=== PATIENT | female | born 1995 | race Caucasian/White ===

== ENCOUNTER 2018-06-06 11:11 | Inpatient (IN) ==
[2018-06-06 12:28] LABS: BASO# 0.05 X1000 (0.0-0.2); BASO% 0.6 % (0.0-0.8); HEMATOCRIT 39.3 % (37.0-47.0); HEMOGLOBIN 13.4 g/dL (12.0-16.0); IMM GRAN# 0.02 X1000 (0.0-0.04); IMM GRAN% 0.2 % (0.0-0.5); LYMPH% 10.7 % (20.5-51.1); MCH 29.3 PG (27-31); MCHC 34.1 g/dL (33-37); MCV 85.8 FL (81-99); MONO# 0.54 X1000 (0.11-0.59); MONO% 6.4 % (1.7-9.3); MPV 8.1 FL (7.4-10.4); NEUT# 6.94 X1000 (1.4-6.5); NEUT% 82.1 % (42.2-75.2); PLT 238 X1000 (130-400); RBC 4.58 XMIL (4.2-5.4); WBC 8.45 X1000 (4.8-10.8)
[2018-06-06 12:45] LABS: BILIRUBIN URINE NEGATIVE (NEGATIVE); BLOOD URINE 4+ (NEGATIVE); CLARITY CLEAR (CLEAR); COLOR YELLOW; GLUCOSE URINE NEGATIVE (NEGATIVE); KETONE URINE 3+(Large) mg/dL (NEGATIVE); LEUKOCYTES URINE 1+ (NEGATIVE); NITRITE URINE NEGATIVE (NEGATIVE); PH URINE 6.5; PROTEIN URINE 1+(30 mg/dL) mg/dL (NEGATIVE); UROBILINOGEN URINE 4 mg/dL
[2018-06-06 12:46] LABS: URINE BACTERIA 2+ /HFP; URINE EPITHELIAL CELLS >10 /HPF (<10); URINE RBC 20-40 /HPF (<10); URINE SOURCE CLEAN CATCH
[2018-06-06 12:51] LABS: AGAP 22; ALBUMIN 4.3 g/dL (3.5-5.0); ALKALINE PHOSPHATASE 154 U/L (32-104); BUN 9 mg/dL (8-22); CALCIUM 9.4 mg/dL (8.8-10.2); CHLORIDE 98 mmol/L (98-107); COSMO 274; CREATININE 0.7 mg/dL (0.5-0.9); ESTIMATED GFR > 60; GLUCOSE 93 mg/dL (70-104); GOT 116 U/L (10-30); GPT 155 U/L (10-36); LIPASE 18 U/L (13-60); POTASSIUM 3.7 mmol/L (3.5-5.1); SODIUM 138 mmol/L (136-145); TCO2 18 mmol/L (25-35); TOTAL PROTEIN 8.1 g/dL (6.3-8.3)
[2018-06-06] MEDS ORDERED: NS 1,000 ML IV ONE ×2 (15:08→15:09)
[2018-06-06] MEDS ORDERED: ZOFRAN IV ONE (15:08)
[2018-06-06] MEDS ORDERED: THIAMINE 100 MG in NS 50 ML IV ONE (15:08)
[2018-06-06] MEDS ORDERED: ATIVAN IV ONE (15:09)
[2018-06-06] MEDS ORDERED: D50W SYRINGE IV ONE (16:55)
--- NOTE | 2018-06-06 17:00 | PROVIDER DOCUMENTATION ---
This chart was entered by Jeanna Barone Scribe, acting as scribe for Carlos Jennings PA. [id number] Abuse/Overdose - General Chief Complaint: General Adult Stated Complaint: POSS. ALCOHOL POSION. Time Seen by Provider: 06/06/18 14:52 Source: patient Allergies/Adverse Reactions: Allergies Allergy/AdvReac Type Severity Reaction Status Date / Time No Known Allergies Allergy Verified 06/06/18 11:26 Home Medications: Home Medication List Medication Instructions Recorded Confirmed Last Taken Type NK [No Home Medications] 06/06/18 06/06/18 Unknown History - History of Present Illness-Drug/Alcohol Nature of Presenting Problem: Patient is a 22 year old female who presents to the ED with nausea, vomiting and loss of appetite. Patient states she drank large amounts of alcohol this weekend. Patient states history of depression. Patient also states history of alcoholic ketoacidosis. Patient states she was admitted at [facility] last month for alcoholic ketoacidosis. This episode of drinking or use began:: this morning Severity: reports: moderate Situational problems related to:: reports: N/A Psychiatric Complaints: reports: depressed Associated Symptoms: reports: loss of appetite, nausea, vomiting Any injuries associated with this episode of intoxication?: No Similar Symptoms Previously?: Yes Recently seen or treated by another doctor?: Yes - Substance Abuse Substance Use: reports: alcohol - Alcohol Abuse Last Drink?: 22:00 Type and amount of last drink?: vodka Usually drinks:: binge Other alcohols?: reports: N/A Review of Systems - Adult - REVIEW OF SYSTEMS - ADULT Constitutional: reports: no symptoms reported Eyes: reports: no symptoms reported Ears, Nose, Mouth & Throat: reports: no symptoms reported Cardiovascular: reports: no symptoms reported Respiratory: reports: no symptoms reported Gastrointestinal: reports: nausea, poor appetite, vomiting. denies: abdominal pain, diarrhea Genitourinary: reports: no symptoms reported Musculoskeletal: reports: no symptoms reported Integumentary: reports: no symptoms reported Neurological: reports: no symptoms reported Psychiatric: reports: depression. denies: anxiety, suicidal thoughts Endocrine: reports: no symptoms reported Hematologic/Lymphatic: reports: no symptoms reported Allergic/Immunologic: reports: no symptoms reported All Other Systems: Reviewed and Negative Past History - Adult - PAST MEDICAL HISTORY-ADULT Review of Records: reports: Nursing Assessment Review, Medications Reviewed, Social history reviewed & non-contributory. Major Childhood Illnesses: reports: denies history Cardiovascular: reports: denies history Respiratory: reports: denies history Gastrointestinal: reports: denies history Obstetrical/Gynecological: reports: denies history Genitourinary: reports: denies history Musculoskeletal: reports: denies history Neurological: reports: denies history Psychiatric: reports: denies history Endocrine/Immune: reports: denies history Other Conditions: reports: denies history - PRIOR SURGERIES/PROCEDURES Surgical/Procedure History: reports: reviewed, not pertinent - IMMUNIZATION STATUS Childhood Immunizations: See Nurse Assessment Flu Vaccine: See Nurse Assessment - FAMILY HISTORY Family History: reviewed, not pertinent - SOCIAL HISTORY Smoking: denies Substance Use: alcohol Alcohol Use Frequency: 3-4 times a week Physical Exam-General - PHYSICAL EXAM-ADULT Initial Vital Signs Reviewed: Yes - CONSTITUTIONAL General Appearance: alert, no apparent distress - HEAD, EARS, NOSE, MOUTH & THROAT HENMT: other (dry mucous membranes) - RESPIRATORY Respiratory: chest non-tender, lungs clear, normal breath sounds - CARDIOVASCULAR Cardiovascular: normal peripheral pulses, tachycardia - MUSCULOSKELETAL Extremity: normal inspection - SKIN Integumentary: normal color, normal turgor, warm/dry - NEUROLOGIC Neurologic: grossly normal - PSYCHIATRIC Psych/Mental Status: normal mood/affect, oriented x 3 Progress - PLAN OF CARE/RESULTS Progress/Plan/Lab Results: Vital Signs - 8 hr 06/06/18 11:19 06/06/18 12:55 06/06/18 16:06 Temperature 98.1 F 98.3 F Pulse Rate 131 H 112 H 110 H Respiratory Rate 22 18 18 Blood Pressure 142/96 152/97 136/86 O2 Sat by Pulse Oximetry 99 98 97 Bedside Urine ED: Urine Bedside Start: 06/06/18 11:26 Freq: ORDERED Status: Inactive Protocol: Activity Type Activity Date Activity User E-Sign Co-Sign Detail Recorded Client Recorded Date Recorded By Edit Status 06/06/18 14:50 [id number] Active=>Inactive [id number] 06/06/18 14:50 [id number] Laboratory Results - last 24 hr 06/06/18 06/06/18 06/06/18 11:27 12:14 12:14 WBC 8.45 RBC 4.58 Hgb 13.4 Hct 39.3 MCV 85.8 MCH 29.3 MCHC 34.1 RDW Std Deviation 17.0 H Plt Count 238 MPV 8.1 Immature Gran % (Auto) 0.2 Neut % (Auto) 82.1 H Lymph % (Auto) 10.7 L Esmeralda % (Auto) 6.4 Eos % (Auto) 0.0 Baso % (Auto) 0.6 Immature Gran # (Auto) 0.02 Neut # (Auto) 6.94 H Lymph # (Auto) 0.90 L Esmeralda # (Auto) 0.54 Eos # (Auto) 0.00 Baso # (Auto) 0.05 Sodium Potassium Chloride Carbon Dioxide Anion Gap BUN Creatinine Estimated GFR/1.73 m2 BUN/Creatinine Ratio Glucose Calculated Osmolality Calcium Total Bilirubin AST ALT Alkaline Phosphatase Total Protein Albumin Globulin Albumin/Globulin Ratio Amylase 42 Lipase Urine Source CLEAN CATCH Urine Color YELLOW Urine Clarity CLEAR Urine pH 6.5 Ur Specific [place] 1.020 Urine Protein 1+(30 mg/dL) A Urine Ketones 3+(Large) A Urine Blood 4+ Urine Nitrite NEGATIVE Urine Bilirubin NEGATIVE Urine Urobilinogen 4 Urine Microscopic RBC 20-40 A Urine WBC 1+ A Urine Microscopic WBC 10-20 A Ur Epithelial Cells >10 A Urine Bacteria 2+ Urine Glucose NEGATIVE Urine Test Plasma/Serum Ethyl Alc 06/06/18 06/06/18 06/06/18 12:14 12:14 14:50 WBC RBC Hgb Hct MCV MCH MCHC RDW Std Deviation Plt Count MPV Immature Gran % (Auto) Neut % (Auto) Lymph % (Auto) Esmeralda % (Auto) Eos % (Auto) Baso % (Auto) Immature Gran # (Auto) Neut # (Auto) Lymph # (Auto) Esmeralda # (Auto) Eos # (Auto) Baso # (Auto) Sodium 138 Potassium 3.7 Chloride 98 Carbon Dioxide 18 L Anion Gap 22 BUN 9 Creatinine 0.7 Estimated GFR/1.73 m2 > 60 BUN/Creatinine Ratio 13 Glucose 93 Calculated Osmolality 274 Calcium 9.4 Total Bilirubin 1.10 H AST 116 H ALT 155 H Alkaline Phosphatase 154 H Total Protein 8.1 Albumin 4.3 Globulin 4.0 Albumin/Globulin Ratio 1.0 Amylase Lipase 18 Urine Source Urine Color Urine Clarity Urine pH Ur Specific [place] Urine Protein Urine Ketones Urine Blood Urine Nitrite Urine Bilirubin Urine Urobilinogen Urine Microscopic RBC Urine WBC Urine Microscopic WBC Ur Epithelial Cells Urine Bacteria Urine Glucose Urine Test NEGATIVE Plasma/Serum Ethyl Alc Orders Category Date Time Status ED: Urine Bedside ORDERED Care 06/06/18 11:26 Inactive Saline Loc NOW Care 06/06/18 15:08 Active Saline Loc NOW Care 06/06/18 15:08 Active ALCOHOL BLOOD Stat Lab 06/06/18 12:14 Completed AMYLASE [CHEM] Stat Lab 06/06/18 12:14 Completed CBC WITH DIFF [HEME] Stat Lab 06/06/18 12:14 Completed COMPREHENSIVE METABOLIC PANEL [CHEM] Stat Lab 06/06/18 12:14 Completed ETHYLENE GLYCOL [ESCALERA] Urgent Lab 06/06/18 16:57 Ordered LIPASE [CHEM] Stat Lab 06/06/18 12:14 Completed TEST-URINE [PREG] Stat Lab 06/06/18 14:[address] W/POSS RFLX CULT [URINALYSIS] Stat Lab 06/06/18 11:27 Completed URINE CULTURE [RM] Routine Lab 06/06/18 12:47 Received 0.9% Sodium Chloride Inj [Ns] 1,000 ml Med 06/06/18 15:08 Discontinued IV 999 mls/hr 0.9% Sodium Chloride Inj [Ns] 1,000 ml Med 06/06/18 15:09 Discontinued IV 999 mls/hr Dextrose 50% Syringe [D50w Syringe] Med 06/06/18 16:55 Discontinued 50 ml IV NOW ONE Lorazepam [Ativan] Med 06/06/18 15:09 Discontinued 0.5 mg IV NOW ONE Ondansetron [Zofran] Med 06/06/18 15:08 Discontinued 4 mg IV NOW ONE Thiamine 100 mg Med 06/06/18 15:08 Discontinued 0.9% Sodium Chloride Inj [Ns] 50 ml IV NOW 1655: remains tachycardic and nauseous. Will admit. Result Diagrams: 06/06/18 12:14 06/06/18 12:14 - CONSULTS/PCP/HOSPITALIST Notification #1 *Consult/PCP/Hospitalist*: Dr. Ruiz Time Discussed: 16:59 Consult Disposition: Admit Departure - Departure Date of Disposition Decision: 06/06/18 Time of Disposition Decision: 16:59 DIAGNOSIS: Alcoholic ketoacidosis Disposition: ADMITTED INPATIENT 09 Certified Medical Emergency: Emergent Condition: Stable Referrals and Follow-Ups: None,PCP [Primary Care Provider] - - Critical Care Note This patient required my direct & personal management of CC.: No Attestation - Physician/ EDD Attestation Patient care was provided by Advanced Practice Provider:: Yes Advanced Practice Provider:: Carlos Jennings Advanced Practice Provider documentation review:: The Mid-level provider documentation, treatment plan and medical decision making was reviewed by the physician who agrees with all treatment and medical decision making by the MLP. The physician spent face to face time with patient:: No Advanced Practice Provider documentation review:: Supervising physician onsite and consulted in the evaluation and care of this patient. The physician did not have a face to face encounter with the patient. This chart was documented by the indicated scribe, (Jeanna Barone Scribe) and accurately reflects the services I performed and decisions made by me, Carlos Jennings, PA, as attested by the provider's signature.
[2018-06-06] MEDS ORDERED: BENTYL PO PRN (17:19)
[2018-06-06] MEDS ORDERED: ATARAX PO PRN (17:19)
[2018-06-06] MEDS ORDERED: ATIVAN IV PRN (17:20)
[2018-06-06] MEDS ORDERED: LIBRIUM PO SCH (17:30)
--- NOTE | 2018-06-06 17:46 | HISTORY AND PHYSICAL ---
PRIMARY CARE PHYSICIAN: None. CHIEF COMPLAINT: Of nausea, vomiting, decreased appetite and drinking alcohol daily for the last couple of days. HISTORY OF PRESENTING ILLNESS: This is a 22-year-old, female, who presents to [facility] ER with complaints of nausea, vomiting, loss of appetite. States she had been drinking about a pint of vodka daily for the past 2 to 3 days, usually only drinks on the weekends. States that she has a history of alcoholic ketoacidosis and was admitted to [facility] last month for this. States that she would like to stop drinking alcohol but that "it's been very hard to quit." Her laboratory data showed an AST of 116, ALT 115, alkaline phosphatase 154. Her urinalysis was negative nitrites, but 1+ white blood cells and 2+ bacteria. Negative test. Serum alcohol level showed none detected at this time. She was tachycardic on arrival at 131, now down to 110 and so she will be admitted for further evaluation and treatment. PAST MEDICAL HISTORY: ETOH ketoacidosis and depression and ETOH abuse. PAST SURGICAL HISTORY: None. FAMILY HISTORY: Reviewed and noncontributory. SOCIAL HISTORY: She currently lives with family. Denies any tobacco use. States she drinks a pint of vodka daily on the weekends or at least 2 to 3 times a week and uses marijuana occasionally. ALLERGIES: She has no known drug allergies. HOME MEDICATIONS: She does not take any medications on a routine basis. LABORATORY DATA: Showed a white blood cell count of 8.45, hemoglobin 13.4, hematocrit 39.3, platelets 238. Sodium 138, potassium 3.7, chloride 98, CO2 of 18, BUN of 9, creatinine 0.7, glucose 93. AST 116, ALT 155, alkaline phosphatase 154, total bilirubin 1.10. Amylase of 42, lipase 18. Urinalysis showed 3+ ketones, 4+ blood, negative nitrites, 1+ white blood cells, 2+ bacteria. Urine test was negative. Serum alcohol level showed none detected. REVIEW OF SYSTEMS: She denied any fever, chills, blurred vision, dizziness. Denied any chest pain, coughing, shortness of breath. She was positive for nausea, vomiting, some mild abdominal pain. Denied any constipation, diarrhea, burning or hurting with urination. PHYSICAL EXAMINATION: VITAL SIGNS: On arrival she had a temperature of 98.1 degrees a pulse of 131, respirations 22, blood pressure 142/96. Saturating 99% on room air. Heart rate is down currently to 110. GENERAL: This is a 22-year-old, female who is lying in the bed and answers questions appropriately. HEENT: Normocephalic, atraumatic. Normal ENT inspection. Oropharynx and nares are clear. Eyes: Pupils are equal, round, reactive to light and accommodation. Extraocular movements are intact. NECK: Normal inspection, normal range of motion. LUNGS: Clear to auscultation bilaterally with equal lung expansion and chest wall movement. HEART: With regular rate and rhythm. No murmurs, rubs, or gallops. ABDOMEN: Soft, nontender, nondistended. Bowel sounds are present x4 quadrants. MUSCULOSKELETAL: She has 5/5 strength x4 extremities. NEUROLOGICAL: The cranial nerves 2-12 appear grossly intact. ASSESSMENT: 1. Intractable nausea vomiting. 2. Alcoholic ketoacidosis. 3. Alcoholic hepatitis. 4. Tachycardia. 5. Ethanol abuse. PLAN: She will be admitted to the medical unit at [facility]. Placed on normal saline at 125 mL an hour. She will receive a banana bag of fluids daily. Place her on a Librium taper. We will place her on Ativan 1 mg IV q.4 hours p.r.n. for withdrawal. We will give her Zofran 4 mg IV q.4 hours p.r.n., Tylenol 650 mg p.o. q.4 hours p.r.n. Recheck CBC, CMP in the a.m. Discussed ETOH cessation with this patient who verbalizes understanding and said that she does want to try to quit and further orders after seen by attending. Dictated by WINNIE Wing for Jose Ruiz MD cc: WINNIE Wing MD
[2018-06-06] MEDS ORDERED: ZOFRAN IV PRN (18:58)
[2018-06-06] MEDS ORDERED: TYLENOL PO PRN (18:58)
[2018-06-06] MEDS ORDERED: BENADRYL PO PRN (21:07)
[2018-06-06] MEDS ORDERED: SODIUM CHLORIDE 0.9% INJ SCH (21:15)
[2018-06-06] MEDS: FLONASE NAS SCH (21:22)
[2018-06-06] MEDS: PROTONIX IV SCH (21:23)
--- NOTE | 2018-06-06 22:18 | HISTORY AND PHYSICAL ---
She is 22 coming in with nausea, vomiting, diarrhea. She has been well poor p.o. intake. She has been binge drinking for the last 2 to 3 days 2 to 3 pints of vodka for the last 2 to 3 days although she does not drink on her own. She has had issues with alcohol intermittently before. She says she was hospitalized at [facility] for flu-like symptoms and she has been told she has a fatty liver. Her abdominal exam was benign. She is somewhat restless though, she states it is alcohol use but she had no alcohol in her system. Urine drug screen we did not do a urine drug screen curiously, we need to do urine drug screen. Her exam is really pretty benign. We will admit her, hydrate her and see how she does. She does have a gap acidosis or metabolic acidosis although it is fairly mild. Amylase and lipase are normal, her AST and ALT are elevated, we will need to evaluate that, hepatitis profile, make sure she has not ingested any foreign materials as far as substances. DISPOSITION: Pending her clinical status hopefully just here overnight. cc: Jose Ruiz MD
[2018-06-07 00:16] LABS: UR AMPHETAMINES QUAL NONE DETECTED (NONE DETECT); UR BARBITUATES QUAL NONE DETECTED (NONE DETECT); UR BENZODIAZEPIN QUAL PRESUMPTIVE POSITIVE (NONE DETECT); UR COCAINE QUAL NONE DETECTED (NONE DETECT); UR METHADONE QUAL NONE DETECTED (NONE DETECT)
[2018-06-07] MEDS: NS 1,000 ML IV SCH ×3 (00:16→18:51)
[2018-06-07 00:17] LABS: UR CANNABINOIDS QUAL PRESUMPTIVE POSITIVE (NONE DETECT); UR METHAMPHETAMINE QUAL PRESUMPTIVE POSITIVE (NONE DETECT); UR OPIATES QUAL NONE DETECTED (NONE DETECT); UR OXYCODONE QUAL NONE DETECTED (NONE DETECT); UR PCP QUAL NONE DETECTED (NONE DETECT); UR PROPOXYPHENE QUAL NONE DETECTED (NONE DETECT); UR TCA QUAL NONE DETECTED (NONE DETECT)
[2018-06-07] MEDS: ATIVAN IV PRN ×2 (01:00→20:10)
[2018-06-07 06:27] LABS: BASO# 0.02 X1000 (0.0-0.2); BASO% 0.5 % (0.0-0.8); EOS# 0.01 X1000 (0.0-0.7); EOS% 0.3 % (0.0-10.0); HEMATOCRIT 34.4 % (37.0-47.0); HEMOGLOBIN 11.1 g/dL (12.0-16.0); IMM GRAN# 0.01 X1000 (0.0-0.04); IMM GRAN% 0.3 % (0.0-0.5); LYMPH# 1.01 X1000 (1.2-3.4); LYMPH% 27.7 % (20.5-51.1); MCH 28.3 PG (27-31); MCHC 32.3 g/dL (33-37); MCV 87.8 FL (81-99); MONO# 0.43 X1000 (0.11-0.59); MONO% 11.8 % (1.7-9.3); MPV 8.8 FL (7.4-10.4); NEUT# 2.16 X1000 (1.4-6.5); NEUT% 59.4 % (42.2-75.2); PLT 189 X1000 (130-400); RBC 3.92 XMIL (4.2-5.4); RDW 16.8 % (11.5-14.5); WBC 3.64 X1000 (4.8-10.8)
[2018-06-07 06:35] LABS: AGAP 11; ALBUMIN 3.3 g/dL (3.5-5.0); ALKALINE PHOSPHATASE 113 U/L (32-104); BUN 5 mg/dL (8-22); CALCIUM 8.3 mg/dL (8.8-10.2); CHLORIDE 104 mmol/L (98-107); COSMO 268; CREATININE 0.6 mg/dL (0.5-0.9); ESTIMATED GFR > 60; GLUCOSE 85 mg/dL (70-104); GOT 86 U/L (10-30); GPT 97 U/L (10-36); POTASSIUM 3.3 mmol/L (3.5-5.1); SODIUM 136 mmol/L (136-145); TCO2 21 mmol/L (25-35); TOTAL PROTEIN 6.6 g/dL (6.3-8.3)
[2018-06-07] MEDS ORDERED: M.V.I.-12 10 ML, FOLIC ACID 1 MG, MAGNESIUM SULFATE 1 GM, THIAMINE 100 MG in NS 1,000 ML IV SCH (09:00)
[2018-06-07] MEDS: M.V.I.-12 10 ML, FOLIC ACID 1 MG, MAGNESIUM SULFATE 1 GM, THIAMINE 100 MG in NS 1,000 ML IV SCH (09:21)
[2018-06-07] MEDS: FLONASE NAS SCH ×3 (09:21→21:00)
[2018-06-07] MEDS ORDERED: KLOR-CON PO ONE (10:59)
--- NOTE | 2018-06-07 23:53 | PROGRESS NOTE ---
DATE: 06/07/2018 SUBJECTIVE: The patient has no major complaints. OBJECTIVE: Vital Signs: Blood pressure is 140/88, heart rate of 130, respiratory rate 22, temperature 98.7 degrees. Cardiovascular: Regular rate and rhythm. Pulmonary: Bilateral breath sounds. Clear to auscultation. Gastrointestinal: Soft, nontender, nondistended. Bowel sounds were positive. LABORATORY DATA: White count is 3. Hemoglobin and hematocrit 11 and 34. Platelets 189,000. Potassium 3.3. Otherwise, AST and ALT were 86 and 97. PROBLEM LIST: 1. Ketoacidosis, presumably related to possibly starvation versus other issue. She has no gap. Bicarb is normal. She had some ketones, but nothing was measured in the serum. She had no alcohol. So, that is resolved. 2. Alcohol abuse and polysubstance abuse. She did have methamphetamine in her system. She states that she had taken a friend's half Adderall a week ago, which I do not think Adderall has methamphetamine in it, so I do not think she is being very forthcoming with her drug abuse issues. 3. Nausea and vomiting. That seems to have improved. We have advanced her diet. 4. Relative tachycardia. I am not sure if this is drug effect or drug withdrawal. We will continue fluids and check her orthostatics. If they are stable, I think she can go home. I do not really think she is interested in quitting her drug lifestyle, or stopping any of these medications, so we will continue to follow closely. cc: Jose Ruiz MD
[2018-06-08] MEDS: PROTONIX IV SCH (02:59)
[2018-06-08] MEDS: NS 1,000 ML IV SCH ×2 (04:27→15:02)
[2018-06-08 06:27] LABS: BASO# 0.03 X1000 (0.0-0.2); BASO% 0.6 % (0.0-0.8); EOS# 0.03 X1000 (0.0-0.7); EOS% 0.6 % (0.0-10.0); HEMATOCRIT 35.9 % (37.0-47.0); HEMOGLOBIN 11.3 g/dL (12.0-16.0); LYMPH# 1.63 X1000 (1.2-3.4); LYMPH% 32.5 % (20.5-51.1); MCHC 31.5 g/dL (33-37); MCV 88.9 FL (81-99); MONO# 0.64 X1000 (0.11-0.59); MONO% 12.7 % (1.7-9.3); MPV 8.9 FL (7.4-10.4); NEUT# 2.69 X1000 (1.4-6.5); NEUT% 53.6 % (42.2-75.2); PLT 189 X1000 (130-400); RBC 4.04 XMIL (4.2-5.4); RDW 16.8 % (11.5-14.5); WBC 5.02 X1000 (4.8-10.8)
[2018-06-08 06:34] LABS: AGAP 12; BUN 5 mg/dL (8-22); CALCIUM 8.4 mg/dL (8.8-10.2); CHLORIDE 101 mmol/L (98-107); COSMO 266; CREATININE 0.6 mg/dL (0.5-0.9); ESTIMATED GFR > 60; GLUCOSE 83 mg/dL (70-104); POTASSIUM 3.7 mmol/L (3.5-5.1); SODIUM 135 mmol/L (136-145); TCO2 22 mmol/L (25-35)
[2018-06-08] MEDS ORDERED: TYLENOL PO PRN (06:45)
[2018-06-08] MEDS ORDERED: SODIUM CHLORIDE 0.9% INJ SCH (07:00)
[2018-06-08] MEDS ORDERED: PROTONIX IV SCH (07:00)
[2018-06-08] MEDS: M.V.I.-12 10 ML, FOLIC ACID 1 MG, MAGNESIUM SULFATE 1 GM, THIAMINE 100 MG in NS 1,000 ML IV SCH (08:20)
[2018-06-08] MEDS: FLONASE NAS SCH (08:20)
[2018-06-08 12:10] VITALS: BP 128/82
--- NOTE | 2018-06-09 05:09 | DISCHARGE SUMMARY ---
ADMISSION DATE: 06/06/2018 DISCHARGE DATE: 06/08/2018 DISPOSITION: Home. FOLLOWUP: With his primary care doctor. CONSULTATIONS DURING THIS ADMISSION: None. IMAGING STUDIES OF SIGNIFICANCE: None. INVASIVE PROCEDURES DONE DURING THIS ADMISSION: None. ADMISSION DIAGNOSES: 1. Intractable nausea and vomiting. 2. Alcohol ketoacidosis. 3. Alcohol hepatitis. 4. Ethanol abuse. DIAGNOSES AT THE TIME OF DISCHARGE: 1. Intractable nausea and vomiting. Improved. 2. Ethanol abuse. Patient has been counseled. 3. Suspected alcohol ketoacidosis. Resolved. 4. [id number] alcohol-induced hepatitis. 5. Obesity, with BMI of 30.0. 6. Polysubstance abuse, with urine toxicology positive for methamphetamine, benzodiazepine, and cannabinoids. DISCHARGE MEDICATIONS: 1. Multivitamin 1 tablet daily. 2. Omeprazole 20 mg daily. 3. Naltrexone 50 mg daily. 4. Baclofen 5 mg 3 times per day. 5. Thiamine 100 mg p.o. daily. PRESENTING COMPLAINT: Nausea and vomiting. HISTORY OF PRESENTING COMPLAINT: Ms. Nolasco is a 22-year-old female who has been drinking about a pint of alcohol on a daily basis for the past couple days. According to her, she was recently admitted to [facility] last month because of alcohol ketoacidosis. When she got discharged, she said it was just hard to quit, so she started drinking abundantly, and the day before coming to the hospital, she started having nausea and vomiting, which was intractable. She was evaluated, was found to have abnormal chemistry. The patient was dehydrated, and was admitted for further medical care. HOSPITAL COURSE: Ms. Nolasco was admitted to the medical floor. She was adequately hydrated, was initially kept NPO, started on Protonix and other vital medications, other medications including thiamine, multivitamins, and banana bag. Ms. Nolasco responded well to the therapy. Her chemistry got completely stabilized. AST and ALT were trending down, and she started tolerating her meals. She felt well a couple days after the hospital stay, and it was deemed that she is stable for discharge. We have discussed extensively about alcohol cessation and all the side effects that come. We have also discussed all the side effects and the long-term medical health issues that all these recreational drugs can cause her. She voiced understanding. She is also willing to get help to stop drinking, but she is very clear that she does not want to go to any rehab. She is open to start taking medication to help her stop all craving for alcohol, so I have started her on naltrexone and baclofen. The patient has been advised to follow up with her primary care doctor. All the discharge instructions have been discussed with her, and she has voiced understanding. TIME SPENT FOR DISCHARGE: 36 minutes. cc: Garry James MD
[2018-06-09 10:34] LABS: HEPATITIS PROFILE ACUTE SEE COMMENTS
== END 2018-06-08 19:06 | disposition home or self-care (01) | DRG 641 ==
LOC: P.ED 11:11 → SUATTDRO 18:23 → P.MEDSURG 18:23
PROVIDERS: ATTEND Internal Medicine
CPT/HCPCS: 36415; 80048; 80053; 80074; 80104; 80301; 80305; 80307; 80320; 81001; 81025; 82055; 82150; 82693; 83690; 85025; 87088; 96361; 96365; 96375; 99284; A9270; C9113; G0431; G0434; G0477; G0480; G6040; J2060; J2405; J3411; J3475; J7030; S0164